=== PATIENT | male | born 1955 | race Caucasian/White ===

== ENCOUNTER 2019-12-11 01:30 | Emergency (ER) | payer MEDICARE, MEDICAID ==
[~2019-12-11] VITALS: Ht 180.3 cm; Wt 81.3 kg
--- NOTE | 2019-12-11 01:43 | NUR ---
ASSESSMENT MADE. CHART UP FOR MD TO SEE. REPORT TO HENRYRN
[2019-12-11] MEDS ORDERED: GLUCAGON 1 MG ONE (02:19)
[2019-12-11] MEDS ORDERED: GLUCAGON 1 MG IVPush ONE (02:30)
--- NOTE | 2019-12-11 02:49 | NUR ---
BREAK RN: PT MEDICATED PER EMAR, 5 RIGHTS ADDRESSED
[2019-12-11 03:48] VITALS: BP 122/77
== END 2019-12-11 03:50 | disposition home or self-care (01) ==
LOC: ED 03:30
DX: T18.128A Food in esophagus causing other injury, initial encounter (principal); F17.210 Nicotine dependence, cigarettes, uncomplicated; I10 Essential (primary) hypertension; E11.9 Type 2 diabetes mellitus without complications; E78.00 Pure hypercholesterolemia, unspecified; X58.XXXA Exposure to other specified factors, initial encounter; Y93.89 Activity, other specified; Y92.89 Other specified places as the place of occurrence of the external cause; Y99.8 Other external cause status
CPT/HCPCS: 96372; 99283; 99406; J1610